=== PATIENT | male | born 1990 | race Caucasian/White ===

== ENCOUNTER 2021-07-04 05:33 | Emergency (ER) | payer BC ==
[~2021-07-04] VITALS: Ht 175.3 cm; Wt 68.0 kg
[2021-07-04] MEDS ORDERED: LAMOTRIGINE250 MG (05:38)
[2021-07-04] MEDS ORDERED: PRISTIQ100 MG PO (05:38)
[2021-07-04] MEDS ORDERED: WELLBUTRIN XL300 MG PO (05:38)
[2021-07-04] MEDS ORDERED: PROPRANOLOL 1010 M1 PO (05:38)
[2021-07-04] MEDS ORDERED: DESCOVY 200-251 EACH PO (05:39)
[2021-07-04] MEDS ORDERED: SEROQUEL XR 20200 MG PO (05:39)
[2021-07-04] MEDS ORDERED: ADDERALL XR 1010 MG PO (05:40)
[2021-07-04] MEDS ORDERED: OMEPRAZOLE 20 M20 M1 PO (05:41)
[2021-07-04] MEDS ORDERED: REVIA 50 MG TAB50 M1 PO (05:41)
[2021-07-04] MEDS ORDERED: BENTYL 10 MG CA10 M1 PO (05:41)
[2021-07-04] MEDS ORDERED: PEPCID20 MG PO (05:41)
[2021-07-04 07:50] VITALS: BP 137/92
== END 2021-07-04 07:51 | disposition home or self-care (01) ==
LOC: M.ERS 05:33
DX: S01.01XA Laceration without foreign body of scalp, initial encounter (principal); Z79.899 Other long term (current) drug therapy; Z91.048 Other nonmedicinal substance allergy status; Z91.040 Latex allergy status; Z88.8 Allergy status to other drugs, medicaments and biological substances; W01.198A Fall on same level from slipping, tripping and stumbling with subsequent striking against other object, initial encounter; Y93.89 Activity, other specified; Y92.89 Other specified places as the place of occurrence of the external cause; Y99.8 Other external cause status